=== PATIENT | female | born 1995 | race African-American/Black ===

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

== ENCOUNTER 2018-06-02 16:54 | Emergency (ER) | payer MEDICAID, OTHER ==
[~2018-06-02] VITALS: Ht 152.4 cm; Wt 81.8 kg
[~2018-06-02 16:54] MED LIST: ACET500C5 PO; DICY10CA40 PO; ELEC100080 PO; IBUP-1542 PO; ONDA4TAB8 PO
[2018-06-02 17:23] VITALS: Ht 152.4 cm; Wt 81.8 kg
[2018-06-02] MEDS ORDERED: KETOROLAC 60 MG INJ IM STA (17:55)
--- NOTE | 2018-06-02 18:16 | ERD ---
ER Documentation Chief Complaint Chief Complaint IUD PLACED ON THURSDAY - VAGINAL BLEEDING AND CRAMPING HPI 23-year-old female presents with complaint of vaginal bleeding and cramping since Thursday. States that she got an IUD in place and since then she has been experiencing these symptoms. States that she is been going through 8 pads a day. States that the bleeding has been getting progressively worse. States that she just had an STD test 2 weeks ago and came back negative. States that she is sexually active, having unprotected sex with one partner. Denies any vaginal discharge. Denies any dysuria, hematuria. ROS All systems reviewed and are negative except as per history of present illness. Medications Home Meds Active Scripts Ibuprofen* (Motrin*) 600 Mg Tab, 600 MG PO QAM for metrorhagia, #30 TAB Prov:ANDREA LEON 06/02/18 Acetaminophen* (Tylophen*) 500 Mg Capsule, 1 CAP PO Q6H PRN for PAIN AND OR ELEVATED TEMP, #30 CAP Prov:PROMARY BLANCO-Elsy 06/23/16 Ibuprofen* (Motrin*) 600 Mg Tab, 600 MG PO Q6, #30 TAB Prov:MARY CHENG PA-C 06/23/16 Electrolyte,Oral (Pedialyte) 1,000 Ml Solution, 100 ML PO Q6 PRN for DIARRHEA, #1000 ML Prov:MARY CHENG PA-C 06/23/16 Dicyclomine HCl (Dicyclomine HCl) 10 Mg Capsule, 10 MG PO QID, #30 CAP Prov:MARY CHENG PA-C 06/23/16 Ondansetron Hcl* (Zofran*) 4 Mg Tablet, 4 MG PO Q6H for NAUSEA AND/OR VOMITING, #30 TAB Prov:MARY CHENGC 06/23/16 Allergies Allergies: Coded Allergies: No Known Allergy (Unverified , 06/23/16) PMhx/Soc Medical and Surgical Hx: pt denies Medical Hx, pt denies Surgical Hx History of Surgery: No Anesthesia Reaction: No Hx Neurological Disorder: No Hx Respiratory Disorders: No Hx Cardiac Disorders: No Hx Psychiatric Problems: No Hx Miscellaneous Medical Probl: No Hx Alcohol Use: No Hx Substance Use: No Hx Tobacco Use: No Smoking Status: Never smoker FmHx Family History: No diabetes, No coronary disease, No other Physical Exam Vitals Vital Signs Date Temp Pulse Resp B/P (MAP) Pulse Ox O2 O2 Flow FiO2 Time Delivery Rate 06/02/18 98.0 69 19 111/74 98 17:23 (86) Physical Exam Const: No acute distress Head: Atraumatic Eyes: Normal Conjunctiva ENT: Normal External Ears, Nose and Mouth. Neck: Full range of motion. No meningismus. Resp: Clear to auscultation bilaterally Cardio: Regular rate and rhythm, no murmurs Abd: Tenderness to palpation in the left lower quadrant without guarding or rigidity. Normal bowel sounds. Pelvic: OS was visualized with implanted IUD in place. There was no pooling of blood in the cervix. Vaginal mucosa was any lesions or tears. No abnormal discharge noted. Skin: No petechiae or rashes Back: No midline or flank tenderness Ext: No cyanosis, or edema Neur: Awake and alert Psych: Normal Mood and Affect Results 24 hrs Laboratory Tests Test 06/02/18 17:59 06/02/18 18:00 06/02/18 18:01 Bedside Urine pH (LAB) 7.0 Bedside Urine Protein (LAB) Negative Bedside Urine Glucose (UA) Negative Bedside Urine Ketones (LAB) Negative Bedside Urine Blood 2+ Bedside Urine Nitrite (LAB) Negative Bedside Urine Leukocyte Esterase Negative (L Urine Color YELLOW Urine Clarity CLEAR Urine pH 7.0 Urine Specific [place] 1.012 Urine Ketones NEGATIVE mg/dL Urine Nitrite NEGATIVE mg/dL Urine Bilirubin NEGATIVE mg/dL Urine Urobilinogen NEGATIVE mg/dL Urine Leukocyte Esterase NEGATIVE Conor/ul Urine Microscopic RBC 5 /HPF Urine Microscopic WBC 1 /HPF Urine Hemoglobin 3+ mg/dL Urine Glucose NEGATIVE mg/dL Urine Total Protein NEGATIVE mg/dl POC Beta HCG, Qualitative NEGATIVE Current Medications Medications Dose Sig/Fabio Start Time Status Last (Trade) Ordered Route PRN Stop Time Admin Dose Reason Admin Ketorolac 60 mg ONCE STAT 06/02/18 DC 06/02/18 Tromethamine IM 17:55 18:35 (Toradol) 06/02/18 17:58 Procedures/MDM DIAGNOSTIC IMAGING REPORT Patient: VANESSA NINO : 1995 Age: 23 Sex: F MR #: [id number] DOS: 06/02/18 1477 Ordering MD: ANDREA LEON Location: [facility] Room/Bed: PROCEDURE: US Pelvis Complete, Transabdominal US Pelvis, Transvaginal CLINICAL INDICATION: Pelvic pain and bleeding. IUD. TECHNIQUE: Real-time transabdominal and transvaginal pelvic ultrasound (complete) with image documentation. Transvaginal imaging was used for better evaluation of the endometrium and adnexa. COMPARISON: None FINDINGS: UTERUS/CERVIX: Uterus measures 7.4 x 6.4 x 4.0 cm. Endometrium measures 6 mm in thickness. No myometrial mass. RIGHT OVARY: Right ovary measures 2.5 x 1.8 x 2.1 cm. The ovary is unremarkable in appearance. Follicular type cysts are demonstrated. Blood flow is documented by Doppler. LEFT OVARY: Left ovary measures 3.1 x 2.0 x 1.7 cm. The ovary is unremarkable in appearance. Follicular type cysts are demonstrated. Blood flow is documented by Doppler. FREE FLUID: No free fluid. BLADDER: Unremarkable as visualized. Wall is normal thickness for degree of distention. TUBES, LINES AND DEVICES: There is an intrauterine device within the endometrial canal, which appears appropriately positioned. IMPRESSION: 1. There is an intrauterine device within the endometrial canal, which appears appropriately positioned. 2. Otherwise unremarkable study. No uterine or adnexal abnormalities are demonstrated. RPTAT: [facility] Adeline Vo Physician Water Maintenance Supervisor Date Time Electronically viewed and signed by Adeline Vo Physician Water Maintenance Supervisor on 06/02/2018 19:50 C/ CC: ANDREA LEON [phone] MDM: Patient has been having abnormal dysfunctional uterine bleeding as well as pelvic pain since having the IUD implanted last Thursday. Patient feels that the IUD is what is causing this discomfort and I do feel that that is a possibility. Patient would like the IUD removed. Intrauterine device was successfully removed per patient's request. Low suspicion for intra-abdominal abscess, pelvic inflammatory disease, appendicitis, acute abdomen, cholecystitis, pyelonephritis, symptomatic anemia, or any emergent condition. Patient advised that if bleeding continues or she feels any symptoms of lighthe adedness, chest pain, heart palpitations or continued pelvic discomfort, or fevers, and she needs to come back to the ER immediately. Patient discharged with strict ER precautions. Patient advised to follow up with PMD. All questions answered at discharge. Departure Diagnosis: Primary Impression: Metrorrhagia Additional Impression: Pelvic pain Condition: Stable ANDREA LEON Jun 02, 2018 18:16
[2018-06-02] MEDS ORDERED: IBUP-1542 PO (20:49)
[2018-06-02 21:02] VITALS: BP 124/81; PULSE 56; RESP 18
== END 2018-06-02 21:04 | disposition home or self-care (01) ==
LOC: FTE 16:54
DX: N92.1 Excessive and frequent menstruation with irregular cycle (principal); R10.2 Pelvic and perineal pain
CPT/HCPCS: 76830; 76856; 81001; 81025; 87591; 96372; J1885; Z7502; 81003